=== PATIENT | female | born 1955 | race Caucasian/White ===

== ENCOUNTER → 2023-05-01 12:20 | Outpatient (REF) | payer BC, SELFPAY | LOC: HWRAD 12:20 | PROVIDERS: ATTENDING PHYSICIAN Nurse Practitioner Family | DX: R05.2 Subacute cough (principal) | CPT/HCPCS: 71046 ==

== ENCOUNTER → 2023-10-15 09:01 | Outpatient (REF) | payer MEDICARE, BC, SELFPAY | LOC: HWRAD 09:01 | PROVIDERS: ATTENDING PHYSICIAN Otolaryngology; FAMILY PHYSICIAN Family Medicine | DX: J32.0 Chronic maxillary sinusitis (principal); R05.3 Chronic cough | CPT/HCPCS: 70486 ==

== ENCOUNTER → 2024-01-17 10:20 | Outpatient (REF) | payer MEDICARE, BC, SELFPAY | LOC: CLAB 10:20 | PROVIDERS: ATTENDING PHYSICIAN Otolaryngology | DX: J32.9 Chronic sinusitis, unspecified (principal) | CPT/HCPCS: 88304; 88311 ==

== ENCOUNTER → 2024-08-10 09:33 | Outpatient (REF) | payer MEDICARE, BC, SELFPAY | LOC: MRI 09:33 | PROVIDERS: ATTENDING PHYSICIAN Podiatrist Foot Surgery; FAMILY PHYSICIAN Family Medicine | DX: R22.41 Localized swelling, mass and lump, right lower limb (principal) | CPT/HCPCS: 73718 ==

== ENCOUNTER → 2025-02-03 11:20 | Outpatient (REF) | payer MEDICARE, BC, SELFPAY | LOC: PAVMRI 11:20 | PROVIDERS: ATTENDING PHYSICIAN Ophthalmology | DX: H31.8 Other specified disorders of choroid (principal) | CPT/HCPCS: 70543; A9575 ==